=== PATIENT | female | born 2000 | race African-American/Black ===

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

== ENCOUNTER 2020-05-01 07:07 | Emergency (ER) | payer SELFPAY ==
[2020-05-01] MEDS ORDERED: Ondansetron ODT 4 MG TAB ONE (07:23)
[2020-05-01 20:15] LABS: SARS-CoV-2 MS2 Positive; SARS-CoV-2 N Gene Negative; SARS-CoV-2 S Gene Negative; SARS-CoV-2 by NAA Not Detected (NotDetected); SARS-CoV-2 orf1ab Negative
== END 2020-05-01 08:13 | disposition home or self-care (01) ==
LOC: ERS 07:07
DX: R53.81 Other malaise (principal); R11.2 Nausea with vomiting, unspecified
CPT/HCPCS: 87635; 99283; Q0162; U0003

== ENCOUNTER 2024-03-27 09:26 | Day surgery (SDC) | payer OTHER ==
[~2024-03-27 09:26] MED LIST: Ferumoxytol (ERSD) 510 MG in 0.9 % Sodium Chloride 150 ML IVPB SCH
[2024-03-27] MEDS ORDERED: Acetaminophen 500 MG TAB ONE (10:13)
[2024-03-27] MEDS: Acetaminophen 500 MG TAB PO SCH (10:14)
[2024-03-27 14:48] VITALS: BP 115/58; TEMP 98.1
== END 2024-03-27 15:26 | disposition home or self-care (01) ==
LOC: ONC/OP 09:26
PROVIDERS: ATTEND Family Medicine
DX: O99.019 Anemia complicating pregnancy, unspecified trimester (principal); Z3A.00 Weeks of gestation of pregnancy not specified
CPT/HCPCS: 96365; 96366; Q0139